=== PATIENT | female | born 1950 | race Caucasian/White ===

== ENCOUNTER → 2017-01-23 | Outpatient (CLI) | payer MEDICARE, OTHER ==
[~2017-01-23] MED LIST: CARAFATE1 G PO; IBUPROFEN800 MG PO; SIMVASTATIN5 MG PO
--- NOTE | ~2017-01-23 | US85 ---
[facility] A Service of [facility] RADIOLOGY TEXT RESULTS PATIENT: BETSY SHARMA LOCATION: [facility] : 50 UNIT #: [id number] AGE: [address]: James Chua MD SEX: F ORDER DR: [id number] [facility] [address] [place], [place] [address] [id number] O MR#: [id number] Acc #: [id number] NAME: BETSY SHARMA : 1950 SEX: F STUDY DATE/TIME: 01/23/2017 16:00 UNIT: CNIV ROOM: STUDY DESCRIPTION: [facility] Attending Physician: James Chua M.D. Referring Physician: James Chua M.D. Ordering Physician: James Chua M.D. Primary Care Physician: James Chua M.D. MEDICAL IMAGING REPORT This report is preliminary unless electronic signature is present EXAM Color Doppler ultrasound examination of the left lower extremity. HISTORY Left leg pain for the past 3 months. TECHNIQUE Ultrasound evaluation was performed with palomares-scale, color-flow and Doppler spectral waveform analysis. FINDINGS The examination is negative. There is no evidence of left lower extremity deep venous thrombus from the groin to the lower calf. Visualized greater saphenous vein is also patent. IMPRESSION Negative examination. No evidence of left lower extremity DVT. STAT * RESULT Dictated by... Craig Pineda M.D. THIS IS AN ELECTRONICALLY VERIFIED REPORT Craig Pineda M.D. at 01/24/2017 11:30 AM KAYLEIGH/dayanara TD: 01/23/2017 16:38 JOB #: [id number] [facility] A Service of [facility] RADIOLOGY TEXT RESULTS PATIENT: BETSY SHARMA LOCATION: [facility] #: [id number] : 50 UNIT #: [id number] AGE: [address]: James Chua MD SEX: F ORDER DR: MEDICAL IMAGING REPORT Page 1 of 1 COPY
== END | disposition home or self-care (01) ==
LOC: CNIV 15:36
DX: I83.812 Varicose veins of left lower extremity with pain (principal)
CPT/HCPCS: 93971